=== PATIENT | male | born 1980 | race Caucasian/White ===

== ENCOUNTER 2022-12-20 17:45 | Emergency (ER) | payer SELFPAY ==
[~2022-12-20] VITALS: Ht 175.3 cm; Wt 61.7 kg
--- NOTE | 2022-12-20 18:34 | NUR ---
PATIENT AMBULATED TO ROOM #4, INFORMED OF PLAN OF CARE, NO S/S OF ANY DISTRESS NOTED. MD AT BEDSIDE FOR EXAM.
[2022-12-20] MEDS ORDERED: CYCL10TA9 PO (18:38)
[2022-12-20] MEDS ORDERED: ONDA4TAB5 PO (18:38)
[2022-12-20] MEDS ORDERED: HYDR-4275 PO (18:38)
[2022-12-20] MEDS ORDERED: CYCLOBENZAPRINE HCL 10 MG TABLET PO ONE (18:45)
[2022-12-20] MEDS ORDERED: HYDROCODONE/APAP 5-325MG TABLET PO ONE (18:45)
[2022-12-20] MEDS ORDERED: ONDANSETRON ODT 4 MG TAB.RAPDIS SL ONE (18:45)
[2022-12-20] MEDS ORDERED: CYCLOBENZAPRINE HCL 10 MG TABLET ONE (18:49)
[2022-12-20] MEDS ORDERED: HYDROCODONE/APAP 5-325MG TABLET ONE (18:49)
[2022-12-20] MEDS ORDERED: ONDANSETRON HCL 4 MG TABLET ONE (18:49)
--- NOTE | 2022-12-20 18:52 | NUR ---
MEDICATED PER ORDERK ACI GIVEN, REMAINS STABLE FOR DISCHARGE HOME.
[2022-12-20 18:53] VITALS: BP 140/80; O2SAT 98
== END 2022-12-20 18:53 | disposition home or self-care (01) ==
LOC: ER 17:55
DX: S13.9XXA Sprain of joints and ligaments of unspecified parts of neck, initial encounter (principal); Z79.899 Other long term (current) drug therapy; V89.2XXA Person injured in unspecified motor-vehicle accident, traffic, initial encounter; Y93.89 Activity, other specified; Y92.89 Other specified places as the place of occurrence of the external cause; Y99.8 Other external cause status
CPT/HCPCS: A4663; Q0162